=== PATIENT | female | born 1970 | race Asian ===

== ENCOUNTER 2018-12-27 16:05 | Emergency (ER) | payer OTHER ==
[~2018-12-27] VITALS: Ht 162.6 cm; Wt 80.3 kg
[2018-12-27 16:12] VITALS: Ht 162.6 cm; Wt 80.3 kg
[2018-12-27 17:15] VITALS: BP 145/87
== END 2018-12-27 17:15 | disposition home or self-care (01) ==
LOC: ED 16:05
DX: H01.005 Unspecified blepharitis left lower eyelid (principal); I10 Essential (primary) hypertension